=== PATIENT | male | born 1980 | race Caucasian/White ===

== ENCOUNTER 2016-07-04 13:22 | Observation (INO) | payer OTHER ==
--- NOTE | 2016-07-04 14:10 | EDPHY ---
H & P Stated Complaint: fall, ankle injury Time Seen by Provider: 07/04/16 13:35 HPI/ROS: CHIEF COMPLAINT: Right ankle pain and deformity HISTORY OF PRESENT ILLNESS: The patient presents to the ED with complaints of right ankle pain and deformity after he fell rock climbing earlier today. The patient has a history of chronic right knee pain from a known ACL injury. The patient also complains of some left lateral knee pain. The patient did not strike his head or lose consciousness. He has no complaints of neck pain, back pain, chest pain, shortness of breath, difficulty breathing or other concerns. The patient denies focal numbness or weakness. He reports his pain is currently a 4/10. REVIEW OF SYSTEMS: A comprehensive 10 point review of systems is otherwise negative aside from elements mentioned in the history of present illness. Source: Patient Exam Limitations: No limitations - Personal History Current Tetanus Diphtheria and Acellular Pertussis (TDAP): No - Medical/Surgical History Hx Asthma: No Hx Chronic Respiratory Disease: No Hx Diabetes: No Hx Cardiac Disease: No Hx Renal Disease: No Hx Cirrhosis: No Hx Alcoholism: No Hx HIV/AIDS: No Hx Splenectomy or Spleen Trauma: No Other PMH: knee ligament - Social History Smoking Status: Never smoked - Physical Exam Exam: General Appearance: Alert, no distress Head: Atraumatic Eyes: Pupils equal, round, reactive ENT, Mouth: No hemotympanum, no oral trauma Neck: Nontender, trachea midline Respiratory: No chest wall tender, subcutaneous air, lungs clear bilaterally Cardiovascular: Regular rate and rhythm Abdomen: Abdomen is soft and nontender, pelvis stable Skin: No lacerations, No abrasion Back: No midline T/L/S pain Extremities: Tenderness, deformity, swelling right ankle. Tenderness lateral aspect left knee Neurological: A&Ox3, normal motor function, normal sensory exam Constitutional: Initial Vital Signs Temperature (C) 36.6 C 07/04/16 13:37 Heart Rate 70 07/04/16 13:37 Respiratory Rate 14 07/04/16 13:37 Blood Pressure 122/66 H 07/04/16 13:37 O2 Sat (%) 99 07/04/16 13:37 O2 Delivery Mode Room Air Allergies/Adverse Reactions: No Known Allergies Allergy (Unverified 07/04/16 13:37) Home Medications: Medication Instructions Recorded NK [No Known Home Meds] 07/04/16 Medical Decision Making - Diagnostics Imaging: Right Ankle, Three Views History: Pain, post trauma. 10 foot fall rock climbing. Findings: There is a comminuted distal tibial metaphysis and epiphysis fracture. There is impaction of the tibial shaft into the distal tibial plateau found. There is overriding of approximately 1.5 cm. There is mild anterior angulation of the distal tibia. There is a comminuted distal fibular fracture at the level of the ankle mortise. The talar dome, hindfoot and midfoot are intact.. Impression: Comminuted distal tibial and fibular fractures, with a disrupted tibial plafond Left Knee, 5 views including a sunrise view History: Pain post fall while rock climbing Comparison: None Findings: There is a lateral tibial plateau fracture that may be minimally decompressed. On the lateral view there appears to be a triangular bone fragment in the anterior knee joint, that may represent a displaced tibial spine. The remainder the knee looks normal. Alignment is anatomic. The patella is intact. There is a suprapatellar knee joint effusion. Impression: Lateral tibial plateau fracture. Please see above. CT of the knee may be complementary. Right ankle CT scan: Comminuted distal tibial and fibular fractures, with a disrupted tibial plafond Left knee CT scan: Lateral tibial plateau fracture Procedures: Procedure: Splint placement. A ortho glass three-way posterior splint was applied to the right lower extremity by the tech. After application of the splint I returned and re- examined the patient. The splint was adequately immobilizing the joint and distal to the splint the patient's circulation and sensation was intact. ED Course/Re-evaluation: The patient presents to the ED for evaluation of right ankle pain and left knee pain following a fall while rock climbing. The patient is noted to have a closed comminuted right plafond fracture and a closed left lateral tibial plateau fracture. The patient had an IV established. The patient received a L of normal saline. The patient received IV morphine and Dilaudid. Consultation was made with Dr. Jaylyn Mcconnell who is on-call for Orthopedic surgery. The patient will be taken for preoperative CT scans of his ankle and knee fracture. The patient was evaluated by Dr. Mcconnell in the emergency department. He is recommending the patient be discharged home with a knee immobilizer and follow up with their office on [place] morning. The patient can weight bear on his left leg per Dr. Mcconnell. He will follow up on Wednesday with [facility] for orthopedic surgery to arrange surgery. Update at 4:30 p.m.: The patient has attempted to ambulate without success. He cannot bear weight and walk with crutches. He will require admission to the hospital. Dr. Mcconnell has been notified. The patient will be admitted to Dr. Mcconnell 's service. Differential Diagnosis: Differential diagnosis considered includes ankle fracture, knee fracture, arterial injury, nerve injury, compartment syndrome - Data Points Medications Given: Discontinued Medications Sodium Chloride (Ns) 1,000 mls @ 0 mls/hr IV ONCE ONE PRN Reason: Wide Open Stop: 07/04/16 14:42 Last Admin: 07/04/16 14:41 Dose: 1,000 mls Departure - Departure Disposition: [facility] Inpatient Acute Clinical Impression: Fracture of right tibial plafond with involvement of fibula Qualifiers: Encounter type: initial encounter Fracture type: closed Qualified Code(s): S82.871A - Displaced pilon fracture of right tibia, initial encounter for closed fracture Fracture of left tibial plateau Qualifiers: Encounter type: initial encounter Fracture type: closed Qualified Code(s): S82.142A - Displaced bicondylar fracture of left tibia, initial encounter for closed fracture Condition: Fair Referrals: NONE *PRIMARY CARE P,. [Primary Care Provider] - As per Instructions
[2016-07-04] MEDS ORDERED: NS 1,000 ML IV ONE (14:41)
--- NOTE | 2016-07-04 16:11 | GCON ---
DATE OF CONSULTATION: 07/04/2016 CHIEF COMPLAINT: 1. Right ankle pain. 2. Left knee pain. DIAGNOSIS: 1. Closed pilon fracture, right ankle. 2. Closed left tibial plateau fracture. HISTORY OF PRESENT ILLNESS: The patient is a 35-year-old male, otherwise in healthy, condition. He was up at [employer] attempting a climb, and fell and hit the deck, and landed on bilateral l ower extremities. He does not complain of any back pain. He was triaged to the emergency room. X-rays and CT scans were taken. Trauma evaluation. Isolated bilateral lower extremity injury, clos ed injuries. Please see details of ER H and P. PERTINENT ORTHOPEDIC EXAMINATION: GENERAL: This is a well-appearing gentleman in no apparent distr ess. His last meal was reportedly at 7 a.m. UPPER EXTREMITIES: Bilateral upper extremities withou t any pain. ABDOMEN: Soft. Pelvis stable. LEFT LOWER EXTREMITY: Left knee was swollen. Left an kle nonpainful. He had 3-120 degrees of flexion of the left knee. Full range of motion of the left ankle. Nontender left ankle. Tender lateral joint line, left knee. RIGHT LOWER EXTREMITY: Right ankle reportedly was closed. He had a well padded splint. The right knee was not swollen. He had intact EHL, FHL bilaterally with negative passive range of motion. Pain on the right ankle. IMAGING: X-rays were reviewed, which showed: 1. A comminuted pilon fracture involving both the tibia and the fibula. 2. Left knee showed a lateral plateau fracture. CT scans were reviewed which showed the extent of the injury. IMPRESSION/RECOMMENDATION: Surgical fixation needed for the right ankle fracture. I discussed this with our foot and ankle surgeon. We want to wait for the swelling to come down, and we will book t his as an outpatient procedure. He looks neurovascularly intact with good swelling control. He has strict elevation precautions. With regard to the left knee, it does appear to be stable. I think we can attempt nonsurgical manag ement. We are going to place him in a knee immobilizer, let him weight bear as tolerated considerin g his bilateral lower extremity injuries, and make him crutch weightbearing. We will attempt to mob ilize him in the ER. If not, he can be admitted to the hospital for elevation and observation. /[id number]/MODL
[2016-07-04] MEDS ORDERED: oxyCODONE IR 5 MG TAB PO PRN (17:22)
[2016-07-04] MEDS ORDERED: ONDANSETRON 4 MG/2 ML VIAL IVP PRN (17:23)
[2016-07-04 20:59] LABS: COLOR YELLOW; LEUKOCYTE ESTERASE,URINE NEGATIVE (NEGATIVE); NITRITE,URINE NEGATIVE (NEGATIVE)
[2016-07-05] MEDS: ENOXAPARIN 40 MG/0.4 ML SYR SC SCH (10:13)
[2016-07-06 07:30] VITALS: RESP 14
[2016-07-06] MEDS: ENOXAPARIN 40 MG/0.4 ML SYR SC SCH (08:20)
[2016-07-06] MEDS: oxyCODONE IR 5 MG TAB PO PRN ×2 (12:29→16:20)
--- NOTE | 2016-07-06 13:10 | SOAPPROG ---
SOAP Progress Note Assessment/Plan: Assessment: seen Wednesday07/05/16 comfortable Inability to stabilize himself on L knee. R ankle pilon. NVI Plan: 07/06/16 13:06 Work with PT/OT Swelling control try to mobilize. pain control Discussed case with Foot and ankle specialist consider surgery, possible stage surgery on pilon once swelling is acceptable Subjective: HD 1 07/05/16 Friends at bedside [place] bars and [place]en [place] house at bedside comfortable on IV pain meds Objective: Vital Signs Temp Pulse Resp BP Pulse Ox 36.8 C 68 14 136/73 H 94 07/05/16 23:16 07/06/16 07:29 07/06/16 07:29 07/06/16 07:29 07/06/16 07:29 07/05/16 07/06/16 07/07/16 05:59 05:59 05:59 Intake Total 1500 2000 Output Total 1400 1622 550 Balance 100 -8536 -550 splint intact no pain with PROM toes bilateral L knee is effused thighs soft abd soft ICD10 Worksheet Patient Problems: Problems Problem Status Onset Fracture of left tibial plateau Acute Fracture of right tibial plafond with involvement of fibula Acute
[2016-07-06 16:00] VITALS: BP 129/77; PULSE 73; TEMP 98.6; O2SAT 96
== END 2016-07-06 18:47 | disposition short-term general hospital (02) ==
LOC: UNDOADMOB 14:43 → INTOOBSV 16:29 → F3N 16:58
PROVIDERS: ADMIT Orthopaedic Surgery; ATTEND Orthopaedic Surgery
PROC: 2W3QX1Z Immobilization of Right Lower Leg using Splint (ICD-10-PCS; principal; 2016-07-04)
DX: S82.871A Displaced pilon fracture of right tibia, initial encounter for closed fracture (principal); S82.451A Displaced comminuted fracture of shaft of right fibula, initial encounter for closed fracture; S82.142A Displaced bicondylar fracture of left tibia, initial encounter for closed fracture; W15.XXXA Fall from cliff, initial encounter; Y93.31 Activity, mountain climbing, rock climbing and wall climbing; Y92.828 Other wilderness area as the place of occurrence of the external cause
CPT/HCPCS: 29515; 73564; 73610; 73700; 96360; 97162; 97166; 97530; 99285; G0378; J1650; L1830